=== PATIENT | male | born 1975 | race Caucasian/White ===

== ENCOUNTER 2018-11-19 06:10 | Inpatient (IN) | payer BC ==
[2018-11-19 06:40] LABS: ABSOLUTE BASOPHILS # (AUTO) 0.1 10^3/uL (0.0-0.2); ABSOLUTE EOSINOPHILS # (AUTO) 0.3 10^3/uL (0.0-0.6); ABSOLUTE LYMPHOCYTES (AUTO) 3.8 10^3/uL (0.5-4.7); ABSOLUTE MONOCYTES (AUTO) 1.2 10^3/uL (0.1-1.4); ABSOLUTE NEUT (AUTO) 4.8 10^3/uL (1.7-8.2); BASOPHILS % (AUTO) 0.8 % (0-2); EOSINOPHILS % (AUTO) 2.5 % (0-6); HEMATOCRIT 45.4 % (37.9-51.0); HEMOGLOBIN 15.1 g/dL (13.5-17.0); LYMPHOCYTES % (AUTO) 37.9 % (13-45); MEAN CORPUSCULAR HEMOGLOBIN 29.2 pg (27.0-33.4); MEAN CORPUSCULAR HGB CONC 33.4 g/dL (32.0-36.0); MEAN CORPUSCULAR VOLUME 88 fl (80-97); MONOCYTES % (AUTO) 11.8 % (3-13); PLATELET COUNT 269 10^3/uL (150-450); RED BLOOD COUNT 5.18 10^6/uL (4.35-5.55); RED CELL DISTRIBUTION WIDTH 14.3 % (11.5-14.0); TOTAL CELLS COUNTED % (AUTO) 100 %; WHITE BLOOD COUNT 10.1 10^3/uL (4.0-10.5)
[2018-11-19 06:56] LABS: ALBUMIN 4.1 g/dL (3.5-5.0); ALKALINE PHOSPHATASE 100 U/L (38-126); ANION GAP 10 (5-19); ASPARTATE AMINO TRANSFERASE 27 U/L (17-59); BILIRUBIN,DIRECT 0.2 mg/dL (0.0-0.4); BILIRUBIN,TOTAL 0.3 mg/dL (0.2-1.3); BLOOD UREA NITROGEN 14 mg/dL (7-20); CALCIUM 9.5 mg/dL (8.4-10.2); CARBON DIOXIDE 20 mmol/L (22-30); CHLORIDE 108 mmol/L (98-107); CREATINE KINASE 34 U/L (55-170); GLUCOSE 116 mg/dL (75-110); POTASSIUM 4.1 mmol/L (3.6-5.0)
--- NOTE | 2018-11-19 07:00 | EKG REPORT ---
SEVERITY:- NORMAL ECG - SINUS RHYTHM : Confirmed by: Franklin Sales 19-Nov-2018 07:00:05
--- NOTE | 2018-11-19 07:02 | ER Document Report ---
ED Cardiac - General Chief Complaint: Chest Pain Stated Complaint: CHEST PAIN Time Seen by Provider: 11/19/18 06:50 Mode of Arrival: Medic Information source: Patient, Relative, Emergency Med Personnel Notes: This 43-year-old male patient comes emergency room complaining of substernal chest pain woke him up about 4 AM. He took aspirin 324 mg prior to EMS arrival. He reports EMS gave him 2 nitroglycerin, the first one ease the pain, second made it go away. This occurred about 5:30 AM. He does state that at this time he is starting to get a little discomfort on his left arm. He did have similar pain 8 days ago. He woke up on Monday morning about 4 AM, was taken to [facility] where he was evaluated in the emergency department. He was diagnosed with chest wall pain and dehydration. He developed the pain again in the middle the night and went to [facility] early Monday morning, was again evaluated in the emergency department and diagnosed with chest wall pain and dehydration. He states that he did not have a stress test. He does report that with the 2 visits to [facility], he had substernal chest pain radiating into both arms. This morning the pain was more severe than last week, and radiated only into the left arm. He smokes at least a half a pack a day for 26 years. His father had KS at age 45 with three-vessel bypass, stents, and now has a pacemaker. TRAVEL OUTSIDE OF THE [place] IN LAST 30 DAYS: No - Related Data Allergies/Adverse Reactions: keflex Allergy (Intermediate, Uncoded 11/19/18 06:23) Facial swelling Past Medical History - General Information source: Patient, Emergency Med Personnel - Social History Smoking Status: Current Every Day Smoker Cigarette use (# per day): Yes - 1/2 PPD X 26 yrs Chew tobacco use (# tins/day): No Smoking Education Provided: No Frequency of alcohol use: None Drug Abuse: None Lives with: Spouse/Significant other Family History: CAD - Father had [place] at age 45, three-vessel bypass, stents, and that has a pacemaker, Malignancy - Mother says the family has malignancies Patient has suicidal ideation: No Patient has homicidal ideation: No - Medical History Medical History: Negative Past Surgical History: Reports: Hx Orthopedic Surgery - Right thumb reconstruction following crush injury. Review of Systems - Review of Systems Constitutional: No symptoms reported EENT: No symptoms reported Cardiovascular: See HPI Respiratory: No symptoms reported Gastrointestinal: No symptoms reported Genitourinary: No symptoms reported Musculoskeletal: No symptoms reported Skin: No symptoms reported Hematologic/Lymphatic: No symptoms reported Neurological/Psychological: No symptoms reported Physical Exam - Vital signs Vitals: Resp Pulse Ox 14 96 11/19/18 06:14 11/19/18 06:14 Interpretation: Normal - General General appearance: Appears well, Alert In distress: None - HEENT Head: Normocephalic, Atraumatic Eyes: Normal Pupils: PERRL - Respiratory Respiratory status: No respiratory distress Chest status: Nontender Breath sounds: Normal Chest palpation: Normal - Cardiovascular Rhythm: Regular Heart sounds: Normal auscultation Murmur: No - Abdominal Inspection: Normal - Back Back: Normal - Extremities General upper extremity: Normal inspection General lower extremity: Normal inspection - Neurological Neuro grossly intact: Yes - Psychological Associated symptoms: Normal affect, Normal mood Course - Vital Signs Vital signs: Temp Pulse Resp BP Pulse Ox 97.7 F 22 H 134/86 H 98 11/19/18 06:15 11/19/18 09:01 11/19/18 09:01 11/19/18 09:01 - Laboratory Result Diagrams: 11/19/18 05:36 11/19/18 05:36 Laboratory results interpreted by me: 11/19/18 11/19/18 05:36 05:36 RDW 14.3 H Chloride 108 H Carbon Dioxide 20 L Glucose 116 H Creatine Kinase 34 L - EKG Interpretation by Fl EKG shows normal: Sinus rhythm, [place], Intervals, QRS Complexes. abnormal: ST-T Waves - The EKG is suspicious for developing hyperacute T waves in leads V2, V3, V4. Rate: Normal - 86 Rhythm: NSR When compared to previous EKG there are: Previous EKG unavailable - Consults Dr. Oh Time consulted: 10:25 Consulted provider: other - Will accept at [facility] for Dr. Lora Critical Care Note - Critical Care Note Total time excluding time spent on procedures (mins): 40 Discharge - Discharge Clinical Impression: Non-ST elevation KS (NSTEMI) Condition: Stable Disposition: [facility]
[2018-11-19 07:08] LABS: CREATINE KINASE MB 0.47 ng/mL (<4.55); TROPONIN I 0.019 ng/mL
[2018-11-19] MEDS ORDERED: CLOPIDOGREL BISULFATE 300 MG TABLET PO ONE (09:47)
[2018-11-19] MEDS ORDERED: NITROGLYCERIN 2% OINTMENT 1 GM PACKET TP ONE (09:49)
[2018-11-19] MEDS ORDERED: ENOXAPARIN SODIUM INJ 80 MG/0.8 ML DISP.SYRIN SUBCUT ONE (09:49)
[2018-11-19 09:58] LABS: INTERNATIONAL RATION (INR) 0.98
[2018-11-19] MEDS ORDERED: NORMAL SALINE 1000 ML 1,000 ML IV ONE (09:58)
--- NOTE | 2018-11-19 10:47 | RADIOLOGY REPORT (SQ) ---
EXAM DESCRIPTION: CHEST SINGLE VIEW COMPLETED DATE/TIME: 11/19/2018 10:37 am REASON FOR STUDY: chest pain COMPARISON: None. EXAM PARAMETERS: NUMBER OF VIEWS: One view. TECHNIQUE: Single frontal radiographic view of the chest acquired. RADIATION DOSE: NA LIMITATIONS: None. FINDINGS: LUNGS AND PLEURA: No opacities, masses or pneumothorax. No pleural effusion. MEDIASTINUM AND HILAR STRUCTURES: No masses. Contour normal. HEART AND VASCULAR STRUCTURES: Heart normal in size. Normal vasculature. BONES: No acute findings. HARDWARE: None in the chest. OTHER: No other significant finding. IMPRESSION: NO ACUTE RADIOGRAPHIC FINDING IN THE CHEST. TECHNICAL DOCUMENTATION: JOB ID: [id number] [employer]- All Rights Reserved Reading location - IP/workstation name: [email or web address]
[2018-11-19] MEDS ORDERED: DEXTROSE 5%-LACTATED RINGERS 1,000 ML IV ONE (13:19)
--- NOTE | 2018-11-19 15:51 | EKG REPORT ---
SEVERITY:- NORMAL ECG - SINUS RHYTHM : Confirmed by: Mayda Blum MD 19-Nov-2018 15:50:21
[2018-11-20] MEDS ORDERED: RADIAL COCKTAIL SYRINGE 10 ML IV PRN ×4 (05:00)
[2018-11-20] MEDS ORDERED: ACETAMINOPHEN 325 MG TABLET PO ONE (05:25)
[2018-11-20] MEDS ORDERED: ACETAMINOPHEN 325 MG TABLET PO PRN (08:19)
[2018-11-20] MEDS ORDERED: NORMAL SALINE 1000 ML 1,000 ML IV PRN (08:19)
[2018-11-20] MEDS ORDERED: ONDANSETRON HCL INJ/PF 4 MG/2 ML SDV IV PRN (08:19)
[2018-11-20] MEDS ORDERED: NITROGLYCERIN 0.4 MG/TAB 25 TAB/BOTTLE SL PRN (08:36)
--- NOTE | 2018-11-20 08:49 | PDOC H&P ---
History of Present Illness Patient complains of: Substernal chest pain History of Present Illness: ARIK WRIGHT is a 43 year old male with a very significant family history of coronary artery disease. His father had a myocardial infarction with bypass at 48 years old. Several other paternal relatives from myocardial infarction at age age of 5353 years old. The patient visited the emergency department at [facility] twice in the last 2 weeks with chest pain. His heart score was 1 and troponins were unremarkable and so was discharged both times. Yesterday he developed much more severe substernal chest pain. Responded to sublingual nitroglycerin and was relieved completely after 2 doses of nitro spray. He does take a 325 mg aspirin daily because of his family history. The pain was a burning that was substernal and radiated to his left arm. He is not diaphoretic, short of breath and did not feel palpitations. He experienced no nausea and vomiting. He initially was set for transfer to [facility] however there is a waiting list. As the patient was stable he was referred to the hospitalist service for admission and possible cardiac catheterization. Past Medical History Cardiac Medical History: Reports: None Pulmonary Medical History: Reports: None EENT Medical History: Reports: None Neurological Medical History: Reports: None Endocrine Medical History: Reports: None Renal/ Medical History: Reports: None Malignancy Medical History: Reports: None GI Medical History: Reports: None Musculoskeltal Medical History: Reports: Other - Right thumb fracture Skin Medical History: Reports: None Psychiatric Medical History: Reports: Tobacco Dependency Denies: Alcohol Dependency, Depression, General Anxiety Disorder, Substance Abuse Traumatic Medical History: Reports: None Hematology: Reports: None Infectious Medical History: Reports: None Past Surgical History Past Surgical History: Reports: Orthopedic Surgery - Right thumb reconstruction following crush injury. Social History Information Source: Patient Lives with: Spouse/Significant other, Other - Patient is . He has 1 daughter from a previous relationship. Smoking Status: Current Every Day Smoker - He uses a vape instead of cigarettes. Frequency of Alcohol Use: None Hx Recreational Drug Use: No Hx Prescription Drug Abuse: No - Advance Directive Resuscitation Status: Full Code Surrogate healthcare decision maker:: The patient is a full code. He has not completed any further documentation at this time. His current would be the designated decision maker. Family History Family History: CAD - Father had VA at age 45, three-vessel bypass, stents, and that has a pacemaker, Malignancy - Mother says the family has malignancies Parental Family History Reviewed: Yes - Father with VA and CABG x3 Children Family History Reviewed: Yes Sibling(s) Family History Reviewed.: Yes Medication/Allergy Allergies/Adverse Reactions: keflex Allergy (Intermediate, Uncoded 11/19/18 06:23) Facial swelling Review of Systems All systems: reviewed and no additional remarkable complaints except as stated Constitutional: PRESENT: other - Hungry as patient has been n.p.o. since yesterday Cardiovascular: PRESENT: chest pain - On admission. Currently chest pain-free. Physical Exam Vital Signs: Temp Pulse Resp BP Pulse Ox 99 F 154 H 26 H 115/61 96 11/20/18 04:08 11/20/18 04:08 11/20/18 04:08 11/20/18 01:01 11/20/18 04:08 Intake & Output 11/19/18 11/20/18 11/21/18 06:59 06:59 06:59 Intake Total 1999 Balance 1999 Weight 71.8 kg General appearance: PRESENT: no acute distress, cooperative, well-developed Head exam: ABSENT: atraumatic, normocephalic Eye exam: PRESENT: conjunctiva pink, EOMI. ABSENT: conjunctival injection, scle ral icterus Ear exam: PRESENT: normal external ear exam Mouth exam: PRESENT: moist, neck supple, tongue midline Teeth exam: ABSENT: dental tenderness, poor dentation Neck exam: PRESENT: full ROM. ABSENT: carotid bruit, JVD, lymphadenopathy Respiratory exam: PRESENT: clear to auscultation pacheco, symmetrical, unlabored. ABSENT: accessory muscle use, rales, rhonchi, tachypnea, wheezes Cardiovascular exam: PRESENT: RRR, +S1, +S2. ABSENT: diastolic murmur, systolic murmur, tachycardia Pulses: PRESENT: normal radial pulses, normal dorsalis pedis pul Vascular exam: PRESENT: normal capillary refill. ABSENT: pallor GI/Abdominal exam: PRESENT: normal bowel sounds, soft. ABSENT: distended, tenderness Rectal exam: PRESENT: deferred Gentrourinary exam: ABSENT: indwelling catheter Extremities exam: ABSENT: calf tenderness, joint swelling, pedal edema Musculoskeletal exam: PRESENT: normal inspection, other - Previous surgery right thumb. ABSENT: deformity Neurological exam: PRESENT: alert, awake, oriented to person, oriented to place, oriented to time, oriented to situation, CN II-XII grossly intact. ABSENT: motor sensory deficit Psychiatric exam: PRESENT: appropriate affect, normal mood. ABSENT: agitated, anxious Focused psych exam: ABSENT: delusional, paranoid, pressured speech, restlessness Skin exam: PRESENT: dry, normal color, warm. ABSENT: rash Results Laboratory Results: 11/19/18 05:36 11/19/18 05:36 11/19/18 11/19/18 11/19/18 05:36 05:36 08:40 Creatine Kinase 34 L CK-MB (CK-2) 0.47 Troponin I 0.019 0.240 Impressions: Chest X-Ray 11/19/18 09:59 IMPRESSION: NO ACUTE RADIOGRAPHIC FINDING IN THE CHEST. Assessment and Plan - Diagnosis (1) Non-ST elevation [place] (NSTEMI) Is this a current diagnosis for this admission?: Yes Plan: The patient was assessed in the emergency room and designated for transfer yesterday. Initial troponin was 0.019 and then increased to 0.24. No further troponins were ordered. EKG suggests possible ST changes in V2 and V3. A repeat EKG is ordered for today as our stat cardiac enzymes and chemistries. The patient was chest pain-free after 2 sublingual nitro sprays. He has remained chest free. He has been taking at 325 mg aspirin daily and has not received a dose this morning. He has a remarkable family history for multiple deaths from myocardial infarction on his paternal side. His father in fact had a myocardial infarction at 48 years old with three-vessel bypass. I did contact the cardiac catheterization lab. The patient will be reviewed. I believe he will undergo cardiac catheterization today. Further disposition will be based on the results of the cardiac catheterization. - Time Time Spent with patient: 35 or more minutes Medications reviewed and adjusted accordingly: Yes Anticipated discharge: Home - Inpatient Certification Based on my medical assessment, after consideration of the patient's comorbidities, presenting symptoms, or acuity I expect that the services needed warrant INPATIENT care.: Yes I certify that my determination is in accordance with my understanding of Medicare's requirements for reasonable and necessary INPATIENT services [42 CFR 412.3e].: Yes Medical Necessity: Need Close Monitoring Due to Risk of Patient Decompensation, Other - Need for cardiac catheterization. Disposition currently unknown. Will be based on the results of the cardiac catheterization.
[2018-11-20 09:42] LABS: ANION GAP 9 (5-19); BLOOD UREA NITROGEN 11 mg/dL (7-20); CALCIUM 9.4 mg/dL (8.4-10.2); CARBON DIOXIDE 23 mmol/L (22-30); CHLORIDE 107 mmol/L (98-107); POTASSIUM 4.1 mmol/L (3.6-5.0)
[2018-11-20 10:03] LABS: GLUCOSE 451 mg/dL (75-110)
[2018-11-20] MEDS ORDERED: LIDOCAINE 0.5% INJ-PF (5 MG/ML) 50 ML SDV ONE (10:03)
[2018-11-20] MEDS ORDERED: HEPARIN SODIUM,PORCINE/NS/PF 2,000 UNIT/1,000 ML RTUINJ IV ONE (10:03)
[2018-11-20] MEDS ORDERED: LIDOCAINE 1% INJ-PF (10 MG/ML) 30 ML SDV ONE (10:06)
--- NOTE | 2018-11-20 10:12 | EKG REPORT ---
SEVERITY:- BORDERLINE ECG - SINUS RHYTHM BORDERLINE T ABNORMALITIES, INFERIOR LEADS : Confirmed by: Mayda Blum MD 20-Nov-2018 10:11:44
--- NOTE | 2018-11-20 10:15 | PDOC CONSULTATION ---
Consultation Consult Date: 11/20/18 Attending physician:: LOIS HORNE Provider Consulted: MARIA G GEIGER Consult reason:: N STEMI History of Present Illness Admission Date/PCP: 11/20/18 09:24 Patient complains of: Chest discomfort. Mr. Wright is a 43-year-old gentleman with no prior cardiac history who presents to the emergency room with symptoms of burning in the chest with radiation to the left arm associated with dyspnea. He denies associated palpitations lightheadedness dizziness or nausea. This is described as a waxing and waning type symptoms that lasted for an hour to an hour and a half. He ultimately presented to the emergency room at [facility] and the first and second troponins have been weakly positive. He has not had recurrent pain since admission to the emergency room. He may have had one episode similar to this with exertion previously and he thought it was indigestion. His risk factors for coronary disease are negative for hypertension diabetes or hyperlipidemia although he does have a smoking history and there is a strong family history for the premature development of coronary artery disease. There is no history of prior myocardial infarction congestive heart failure atrial fibrillation stroke or claudication. He denies edema orthopnea or paroxysmal nocturnal dyspnea he is currently non-smoking but still vaping History of Present Illness: ARIK WRIGHT is a 43 year old male Past Medical History Cardiac Medical History: Reports: None Pulmonary Medical History: Reports: None EENT Medical History: Reports: None Neurological Medical History: Reports: None Endocrine Medical History: Reports: None Renal/ Medical History: Reports: None Malignancy Medical History: Reports: None GI Medical History: Reports: None Musculoskeltal Medical History: Reports: Other - Right thumb fracture Skin Medical History: Reports: None Psychiatric Medical History: Reports: Tobacco Dependency Denies: Alcohol Dependency, Depression, General Anxiety Disorder, Substance Abuse Traumatic Medical History: Reports: None Hematology: Reports: None Infectious Medical History: Reports: None Past Surgical History Past Surgical History: Reports: Orthopedic Surgery - Right thumb reconstruction following crush injury. Social History Lives with: Spouse/Significant other, Other - Patient is . He has 1 daughter from a previous relationship. Smoking Status: Current Every Day Smoker - He uses a vape instead of cigarettes. Frequency of Alcohol Use: None Hx Recreational Drug Use: No Hx Prescription Drug Abuse: No - Advance Directive Resuscitation Status: Full Code Family History Family History: CAD - Father had CT at age 45, three-vessel bypass, stents, and that has a pacemaker, Malignancy - Mother says the family has malignancies Parental Family History Reviewed: Yes Children Family History Reviewed: Yes Sibling(s) Family History Reviewed.: Yes Medication/Allergy Allergies/Adverse Reactions: keflex Allergy (Intermediate, Uncoded 11/19/18 06:23) Facial swelling Physical Exam Vital Signs: Temp Pulse Resp BP Pulse Ox 97.6 F 104 H 18 145/87 H 98 11/20/18 09:23 11/20/18 09:23 11/20/18 09:23 11/20/18 09:23 11/20/18 09:23 Intake & Output 11/19/18 11/20/18 11/21/18 06:59 06:59 06:59 Intake Total 1999 Balance 1999 Weight 71.8 kg General appearance: PRESENT: no acute distress, cooperative, disheveled, hard of hearing, mild distress, morbidly obese, obese, severe distress, thin, well- developed, well-nourished, other Head exam: PRESENT: atraumatic, normocephalic Eye exam: PRESENT: conjunctiva pink, EOMI, PERRLA Ear exam: PRESENT: normal external ear exam Mouth exam: PRESENT: neck supple, tongue midline Teeth exam: PRESENT: poor dentation Neck exam: PRESENT: lymphadenopathy, thyromegaly Respiratory exam: PRESENT: decreased breath sounds, prolonged expiratory phas Cardiovascular exam: PRESENT: RRR. ABSENT: diastolic murmur, rubs, systolic murmur Pulses: PRESENT: normal dorsalis pedis pul GI/Abdominal exam: PRESENT: normal bowel sounds, soft. ABSENT: distended, guarding, mass, organolmegaly, rebound, tenderness Rectal exam: PRESENT: deferred Extremities exam: PRESENT: full ROM. ABSENT: calf tenderness, clubbing, pedal edema Musculoskeletal exam: PRESENT: ambulatory Neurological exam: PRESENT: alert, oriented to person, oriented to place, dg ented to time, oriented to situation, CN II-XII grossly intact Psychiatric exam: PRESENT: appropriate affect, normal mood. ABSENT: homicidal ideation, suicidal ideation Additional comments: Limitation of motion of the right thumb from a traumatic injury Results Laboratory Results: 11/19/18 05:36 11/19/18 11/19/18 11/19/18 05:36 05:36 08:40 Creatine Kinase 34 L CK-MB (CK-2) 0.47 Troponin I 0.019 0.240 Impressions: Chest X-Ray 11/19/18 09:59 IMPRESSION: NO ACUTE RADIOGRAPHIC FINDING IN THE CHEST. Assessment & Plan - Diagnosis (1) Non-ST elevation CT (NSTEMI) Is this a current diagnosis for this admission?: Yes Plan: Mr. Wright presents with chest pain and positive troponins consistent with a non-ST elevation myocardial infarction. He is currently pain-free and on a ppropriate medications. We have discussed the importance of risk factor modification after this hospitalization regardless of the findings of his catheterization. He has a strong family history for premature and CAD. Because of this his LDL cholesterol target is 70. He understands he must quit smoking and vaping altogether. Regular exercise program of 30 to 60 minutes is highly recommended as well. Today we have recommended cardiac catheterization for risk stratification and if his anatomy and presentation warrant coronary intervention. This will be attempted radially but he also understands it may need to be done from a femoral approach. We have discussed the risks and benefits of cardiac catheterization and its indications. He understands all questions have been answered. He understands the risks include but are not limited to stroke myocardial infarction hemorrhage vascular injury contrast reaction. He understands if stent implantation is required he will require dual antiplatelet therapy for a minimum of 1 year. We will keep him n.p.o. and bring him to the cardiac catheterization this morning. Thank you for allowing us to be dissipate in the care of Mr. Wright
[2018-11-20] MEDS ORDERED: FENTANYL CITRATE INJ/PF 100 MCG/2 ML AMPUL ONE (10:16)
[2018-11-20] MEDS ORDERED: MIDAZOLAM 2 MG/2 ML INJ ONE ×2 (10:16→10:54)
[2018-11-20] MEDS ORDERED: DIPHENHYDRAMINE HCL 25 MG CAPSULE ONE (10:30)
[2018-11-20] MEDS ORDERED: DIPHENHYDRAMINE HCL 25 MG CAPSULE PO PRN (10:30)
[2018-11-20] MEDS ORDERED: DIAZEPAM 5 MG TABLET ONE (10:30)
[2018-11-20] MEDS ORDERED: HEPARIN SOD (PORCINE) 1,000 UNIT/ML 10 ML VIAL ONE (10:35)
[2018-11-20] MEDS ORDERED: BIVALIRUDIN INJ 250 MG VIAL IV ONE (11:02)
[2018-11-20] MEDS ORDERED: METOPROLOL TARTRATE PF/INJ 5 MG/5 ML SDV IV ONE (11:12)
[2018-11-20] MEDS ORDERED: DIAZEPAM 5 MG TABLET PO ONE (11:15)
[2018-11-20] MEDS ORDERED: ASPIRIN 325 MG TABLET PO ONE (11:15)
[2018-11-20] MEDS ORDERED: NITROGLYCERIN/D5W 50 MG/250 ML RTUINJ IV ONE (11:22)
[2018-11-20] MEDS ORDERED: TICAGRELOR 90 MG TABLET ONE (11:26)
--- NOTE | 2018-11-20 11:50 | Operative Report ---
Operative Report DATE OF SURGERY: 11/20/18 PREOPERATIVE DIAGNOSIS: N STEMI OPERATION: Left heart catheterization coronary angiography left ventriculography and stent implantation in the proximal and distal right coronary artery SURGEON: MARIA G GEIGER ANESTHESIA: Moderate Sedation COMPLICATIONS: None PROCEDURE: After informed consent was obtained the patient was brought to the cardiac cath eterization lab and the right wrist was prepared in usual sterile and draped manner. Hemodynamic access was gained using micropuncture technique and the patient was anticoagulated with heparin. An intra-arterial cocktail of verapamil and lidocaine was administered. Selective coronary angiography was performed with a [place] catheter. This was exchanged with pigtail catheter and left ventriculography was performed in standard KIRK projection. The patient left the Cardiac Catheterization Lab in stable condition, with intact distal pulses and no chest pain or other complications from the procedu re. Conscious sedation was initiated, monitored, and maintained during the procedure with the start time of [1045] and a completion time of 1126 for a total procedure time of 41 minutes. A total of [2] milligrams of Versed and 75 mcg of fentanyl were used for conscious sedation. HEMODYNAMIC DATA: [Aortic pressure to beginning the case is 99/53 post ventriculography LV pressure is 120 3/6 aortic pressure on pullbacks 123/58 there is no gradient across the aortic valve] CORONARY ANATOMY: [] ANGIOGRAPHY: [] VENTRICULOGRAPHY: Ventriculography is performed in the KIRK projection and demonstrates [normal left ventricular systolic function normal regional wall motion ejection fraction is greater than 60% there is no evidence of mitral regurgitation the ascending aortic root is normal] . CORONARY ANGIOGRAPHY: [] LEFT MAIN: [Left main is normal] LEFT ANTERIOR DESCENDING: The LAD is a transapical vessel the proximal to midportion has a 30% stenosis at the first septal branch mechanic no other significant obstructions are seen there is mild to moderate disease in a diagonal branch that is concentric and somewhat difficult to quantify CIRCUMFLEX CORONARY: The circumflex has a 20 to 30% stenosis in the proximal portion no critical or focal narrowings are noted RIGHT CORONARY ARTERY: The right coronary artery appears to be the cut culprit vessel this is a dominant vessel supplying the PDA and posterolateral branch the midportion of the right coronary artery prior to a right ventricular marginal branch is a 70 to 80% stenosis downstream right coronary artery has an ulcerated tandem series of narrowings and 85 to 95% range Coronary intervention: The patient received Angiomax a JR4 catheter was advanced into the right coronary artery and intuition 014 guidewire was advanced across the multiple lesions in the right coronary artery primary stent implantation in the distal stenosis was performed and a 2.5 x 22 mm Medtronic caleb drug-eluting stent was deployed this was dilated to 2.5 mm resulting in an excellent angiographic result intracoronary nitroglycerin was administered in order to fully dilate the vessel which appeared significantly larger ones antegrade flow was reestablished the more proximal stenosis was then addressed a 3 oh by 15 mm Medtronic Caleb stent was deployed to nominal inflation pressures this resulted in an excellent angiographic result there is a 0% residual SAFIA-3 flow no side branch loss or dissection is seen IMPRESSION: 1. Normal left ventricular function 2. No evidence of valvular heart disease 3. Diffuse but noncritical disease in the LAD diagonal and circumflex distribution For high-grade stenosis in the right coronary artery in the mid and distal portion 5. Successful drug-eluting stent with a 2.5 x 22 SHAWNA in the distal right thompson ry artery and a 3.0 x 15 in the mid right coronary artery Recommendations: Dual antiplatelet therapy for 1 year High-dose statin institution and therapy.
[2018-11-20] MEDS: NORMAL SALINE 1000 ML 1,000 ML IV PRN ×2 (12:00→21:31)
--- NOTE | 2018-11-20 17:53 | Progress Note ---
Provider Note Provider Note: Please see cardiac catheterization report by Dr. Amrik Gomez. The patient received 2 stents this morning. He has been started on metoprolol, atorvastatin and lisinopril. We will change the Brilinta to Plavix for financial reasons as he does not have prescription coverage. He will continue with aspirin [address] Gomez reports that the catheterization with stent placement was performed without complication. The patient will be observed tonight on IMCU with possible discharge tomorrow.
[2018-11-20] MEDS ORDERED: TICAGRELOR 90 MG TABLET PO SCH (22:00)
[2018-11-20] MEDS ORDERED: ATORVASTATIN CALCIUM 80 MG TABLET PO SCH (22:00)
[2018-11-21 05:51] LABS: ANION GAP 7 (5-19); BLOOD UREA NITROGEN 17 mg/dL (7-20); CALCIUM 9.6 mg/dL (8.4-10.2); CARBON DIOXIDE 23 mmol/L (22-30); CHLORIDE 109 mmol/L (98-107); GLUCOSE 96 mg/dL (75-110)
[2018-11-21] MEDS ORDERED: CLOPIDOGREL BISULFATE 75 MG TABLET PO SCH (10:00)
[2018-11-21] MEDS ORDERED: METOPROLOL SUCCINATE 25 MG TAB.SR.24H PO SCH (10:00)
[2018-11-21] MEDS ORDERED: ASPIRIN 81 MG TABLET, ENT COATED PO SCH (10:00)
[2018-11-21] MEDS ORDERED: LISINOPRIL 5 MG TABLET PO SCH (10:00)
--- NOTE | 2018-11-21 10:25 | Progress Note Acknowledgement ---
Progress Note Acknowledgement Progess Note Acknowledgement: I, the undersigned member of the medical staff with appropriate privileges and with supervisory authority over [Basilio Kang], a dependent practice allied health professional, acknowledge that I have reviewed the progress notes entered on this patient, and in my professional judgment believe that the assessment made and/or any care evidenced was appropriate
--- NOTE | 2018-11-21 10:28 | PDOC DISCHARGE SUMMARY ---
General - Admit/Disc Date/PCP Admission Date/Primary Care Provider: 11/20/18 09:24 Discharge Date: 11/21/18 - Additional Information Resuscitation Status: Full Code Discharge Diet: As Tolerated Discharge Activity: Activity As Tolerated Prescriptions: Atorvastatin Calcium [Lipitor 80 mg Tablet] 80 mg PO QHS #30 tablet Nitroglycerin [Nitrostat 0.4 mg (1/150 Gr) Tabs 25/Bottle] 25 tab SL Q5MP PRN #1 bottle PRN Reason: Clopidogrel Bisulfate [Plavix 75 mg Tablet] 75 mg PO DAILY #30 tablet Lisinopril [Prinivil 5 mg Tablet] 5 mg PO DAILY #30 tablet Metoprolol Succinate [Toprol Xl 25 mg Tab.sr] 25 mg PO DAILY #30 tab.sr.24h Home Medications: Aspirin [Aspirin 325 mg Tablet] 325 mg PO DAILY 11/20/18 Atorvastatin Calcium [Lipitor 80 mg Tablet] 80 mg PO QHS #30 tablet 11/21/18 Atorvastatin Calcium [Lipitor 80 mg Tablet] 80 mg PO QHS #30 tablet 11/21/18 Clopidogrel Bisulfate [Plavix 75 mg Tablet] 75 mg PO DAILY #30 tablet 11/21/18 Clopidogrel Bisulfate [Plavix 75 mg Tablet] 75 mg PO DAILY #30 tablet 11/21/18 Lisinopril [Prinivil 5 mg Tablet] 2.5 mg PO DAILY #30 tablet 11/21/18 Lisinopril [Prinivil 5 mg Tablet] 5 mg PO DAILY #30 tablet 11/21/18 Metoprolol Succinate [Toprol Xl 25 mg Tab.sr] 25 mg PO DAILY #30 tab.sr.24h 11/21/18 Metoprolol Succinate [Toprol Xl 25 mg Tab.sr] 25 mg PO DAILY #30 tab.sr.24h 11/21/18 Nitroglycerin [Nitrostat 0.4 mg (1/150 Gr) Tabs 25/Bottle] 1 tab SL Q5MP PRN #1 bottle 11/21/18 Nitroglycerin [Nitrostat 0.4 mg (1/150 Gr) Tabs 25/Bottle] 25 tab SL Q5MP PRN #1 bottle 11/21/18 History of Present Illness Patient complains of: None this a.m. History of Present Illness: ARIK WRIGHT is a 43 year old male who was admitted with chest pain and ruled in for a non-STEMI. Hospital Course Hospital Course: Patient was admitted and had positive serial troponins. Patient underwent a cardiac catheterization with 2 stents placed. Patient had one drug-eluting stent placed in the distal right coronary artery and a second stent placed in the mid right coronary artery without incident. At this time patient is improved sufficiently return home his troponins are trending down. Will patient will be continued on aspirin Plavix, beta-blockers, TRAVIS inhibitor and atorvas tatin. Patient will follow-up with primary care within 1 week and cardiology as needed. Physical Exam Vital Signs: Temp Pulse Resp BP Pulse Ox 97.6 F 86 18 134/85 H 99 11/21/18 08:09 11/21/18 08:09 11/21/18 08:09 11/21/18 08:09 11/21/18 08:09 Intake & Output 11/20/18 11/21/18 11/22/18 06:59 06:59 06:59 Intake Total 1999 2544 Output Total 0 Balance 1999 2544 Weight 71.2 kg General appearance: PRESENT: no acute distress, well-developed, well-nourished Head exam: PRESENT: atraumatic, normocephalic Eye exam: PRESENT: conjunctiva pink, EOMI, PERRLA. ABSENT: scleral icterus Ear exam: PRESENT: normal external ear exam Mouth exam: PRESENT: moist, tongue midline Neck exam: ABSENT: carotid bruit, JVD, lymphadenopathy, thyromegaly Respiratory exam: PRESENT: clear to auscultation pacheco. ABSENT: rales, rhonchi, wheezes Cardiovascular exam: PRESENT: RRR. ABSENT: diastolic murmur, rubs, systolic murmur Pulses: PRESENT: normal dorsalis pedis pul Vascular exam: PRESENT: normal capillary refill GI/Abdominal exam: PRESENT: normal bowel sounds, soft. ABSENT: distended, guarding, mass, organolmegaly, rebound, tenderness Rectal exam: PRESENT: deferred Extremities exam: PRESENT: full ROM. ABSENT: calf tenderness, clubbing, pedal edema Neurological exam: PRESENT: alert, awake, oriented to person, oriented to place, oriented to time, oriented to situation, CN II-XII grossly intact. ABSENT: motor sensory deficit Psychiatric exam: PRESENT: appropriate affect, normal mood. ABSENT: homicidal ideation, suicidal ideation Skin exam: PRESENT: dry, intact, warm. ABSENT: cyanosis, rash Results Laboratory Results: 11/19/18 05:36 11/21/18 04:39 11/21/18 04:39 Sodium 138.7 Potassium 4.0 Chloride 109 H Carbon Dioxide 23 Anion Gap 7 BUN 17 Creatinine 0.65 Est GFR ( Amer) > 60 Est GFR (Non-Af Amer) > 60 Glucose 96 Calcium 9.6 11/19/18 11/19/18 11/19/18 05:36 05:36 08:40 Creatine Kinase 34 L CK-MB (CK-2) 0.47 Troponin I 0.019 0.240 11/20/18 11/21/18 09:00 06:07 Creatine Kinase CK-MB (CK-2) Troponin I 0.389 0.240 Impressions: Chest X-Ray 11/19/18 09:59 IMPRESSION: NO ACUTE RADIOGRAPHIC FINDING IN THE CHEST. Qualifiers - * PATIENT BEING DISCHARGED WITH ANY OF THE FOLLOWING DIAGNOSIS: SD VTE patient discharged on overlapping Therapy?: No Reason(s) for not prescribing Overlap Therapy:: Not indicated SD Pt being discharged on Aspirin therapy?: Yes SD Pt being discharged on Statins?: Yes SD Pt discharged ACEI/ARBS?: Yes Acute Heart Failure - Is this a Heart Failure Patient?: No Plan Time Spent: Greater than 30 Minutes
[2018-11-21 11:43] VITALS: BP 145/87
--- NOTE | 2018-11-21 17:31 | EKG REPORT ---
SEVERITY:- NORMAL ECG - SINUS RHYTHM : Confirmed by: Mayda Blum MD 21-Nov-2018 17:30:52
== END 2018-11-21 12:36 | disposition home or self-care (01) | DRG 247 ==
LOC: EDBD → ER 06:10 → EH 11-20 09:24 → 3N 11-20 11:49
PROVIDERS: ADMIT Hospitalist; ATTEND Hospitalist
PROC: 027044Z Dilation of Coronary Artery, One Artery with Drug-eluting Intraluminal Device, Percutaneous Endoscopic Approach (ICD-10-PCS; principal; 2018-11-20)
PROC: 02704DZ Dilation of Coronary Artery, One Artery with Intraluminal Device, Percutaneous Endoscopic Approach (ICD-10-PCS; 2018-11-20)
PROC: 4A023N7 Measurement of Cardiac Sampling and Pressure, Left Heart, Percutaneous Approach (ICD-10-PCS; 2018-11-20)
PROC: B200YZZ Plain Radiography of Single Coronary Artery using Other Contrast (ICD-10-PCS; 2018-11-20)
DX: I21.4 Non-ST elevation (NSTEMI) myocardial infarction (principal); I65.21 Occlusion and stenosis of right carotid artery; E86.0 Dehydration; F17.210 Nicotine dependence, cigarettes, uncomplicated
CPT/HCPCS: 36415; 71045; 80048; 80053; 82550; 82553; 82962; 83735; 84484; 85025; 85610; 92928; 93005; 93010; 93458; 99291; C1887; J0583; J1644; J1650; J2250; J3010; J3490; J7030; J7121